=== PATIENT | male | born 1985 | race American Indian/Alaskan Native ===

== ENCOUNTER 2017-09-24 12:48 | Emergency (ER) | payer BC ==
[2017-09-24 12:59] VITALS: BP 153/105; PULSE 66; TEMP 98.1; O2SAT 98
[2017-09-24] MEDS ORDERED: Albuterol 0.083% Inhal Sol (2.5 mg/3 mL) UD IH STA (13:31)
[2017-09-24] MEDS ORDERED: Albuterol 0.083% Inhal Sol (2.5 mg/3 mL) UD ONE (13:46)
--- NOTE | 2017-09-24 13:49 | RAD ---
HISTORY: productive cough, sob COMPARISON: None available. TECHNIQUE: Chest PA and lateral FINDINGS: Examination limited by habitus. LUNGS: No focal consolidation. Please note that chest x-ray has limited sensitivity for the detection of pulmonary masses. PLEURA: No significant pleural effusion identified. No definite pneumothorax . CARDIOVASCULAR: The cardiomediastinal silhouette appears within normal limits of size. OSSEOUS STRUCTURES: No acute osseous abnormality identified. VISUALIZED UPPER ABDOMEN: Unremarkable. OTHER FINDINGS: None. IMPRESSION: No focal consolidation, significant pleural effusion, or definite pneumothorax identified.
--- NOTE | 2017-09-24 14:35 | C.PDOC ---
History Of Present Illness 31 y/o male hx asthma presents to the ED c/o productive cough with yellow sputum, sore throat, runny nose, and chest tightening for 2-3 days. The patient denies fever, chest pain, abdominal pain, nauseas, vomiting, diarrhea. Time Seen by Provider: 09/24/17 13:06 Chief Complaint (Nursing): Cough, Cold, Congestion History Per: Patient History/Exam Limitations: no limitations Onset/Duration Of Symptoms: Days Current Symptoms Are (Timing): Still Present Additional History Per: Patient Past Medical History Reviewed: Historical Data, Nursing Documentation, Vital Signs Vital Signs: Last Vital Signs Temp 98.1 F 09/24/17 12:57 Pulse 66 09/24/17 12:57 Resp 20 09/24/17 14:45 BP 153/105 H 09/24/17 12:57 Pulse Ox 98 09/24/17 17:56 - Medical History PMH: Asthma, Bronchitis Surgical History: No Surg Hx Family History: States: No Known Family Hx - Social History Hx Alcohol Use: No Hx Substance Use: No - Immunization History Hx Tetanus Toxoid Vaccination: No Hx Influenza Vaccination: No Hx Pneumococcal Vaccination: No Review Of Systems Except As Marked, All Systems Reviewed And Found Negative. Constitutional: Negative for: Fever, Chills ENT: Positive for: Throat Pain, Other (runny nose ) Cardiovascular: Positive for: Chest Pain, Other (chest tightening ) Respiratory: Positive for: Cough (productive with yellow sputum ). Negative for : Shortness of Breath Gastrointestinal: Negative for: Nausea, Vomiting, Abdominal Pain, Diarrhea Skin: Negative for: Rash Physical Exam - Physical Exam Appears: Non-toxic, No Acute Distress, Other (comfortable ) Skin: Warm, Dry Head: Atraumatic, Normacephalic Eye(s): bilateral: Normal Inspection Oral Mucosa: Moist Throat: No Erythema Neck: Supple Chest: Symmetrical Cardiovascular: Rhythm Regular Respiratory: Decreased Breath Sounds, No Rales, No Rhonchi, Other (mild decrease air entirety bilaterally) Back: Normal Inspection, No CVA Tenderness Extremity: Capillary Refill (2<sec. ) Neurological/Psych: Oriented x3, Normal Speech, Other (speaking in full sentences ) Gait: Steady ED Course And Treatment O2 Sat by Pulse Oximetry: 98 (RA) Progress Note: Chest X- Ray was administered. The results are negative. The patient has received albuterol treatment and Tessalon. The patient is sent home with medication. The patient is advised to have a follow up with his PCP for further evaluation. Medical Decision Making Medical Decision Making: IMPRESSION: No focal consolidation, significant pleural effusion, or definite pneumothorax identified. Disposition Counseled Patient/Family Regarding: Studies Performed, Diagnosis, Need For Followup, Rx Given - Disposition Referrals: [facility] [Outside] Disposition: HOME/ ROUTINE Disposition Time: 14:40 Condition: GOOD Additional Instructions: FOLLOW UP WITH YOUR DOCTOR/CLINIC IN 1-2 DAYS USE MEDICATIONS DIRECTED RETURN TO ER IF SYMPTOMS WORSEN Prescriptions: Albuterol HFA [Ventolin HFA 90 mcg/actuation (8 g)] 0.09 mg IH Q4 PRN #1 puff PRN Reason: Wheezing Benzonatate [Tessalon Perles] 100 mg PO BID PRN #15 sgl PRN Reason: Cough predniSONE [predniSONE Tab] 40 mg PO DAILY #6 tab Instructions: Upper Respiratory Infection (ED), Bronchospasm (ED) Forms: [email or web address] (Polish) Print Language: SERBIAN - Clinical Impression Clinical Impression: Viral disease, Influenza-like illness, Bronchospasm - Scribe Statement The provider has reviewed the documentation as recorded by the Stephanieibannia Castrejon
[2017-09-24 14:46] VITALS: RESP 20
== END 2017-09-24 14:45 | disposition home or self-care (01) ==
LOC: C.ER 12:48
DX: J11.1 Influenza due to unidentified influenza virus with other respiratory manifestations (principal); B34.9 Viral infection, unspecified; J98.01 Acute bronchospasm